=== PATIENT | male | born 1955 | race Hispanic/Latino ===

== ENCOUNTER 2025-09-06 17:40 | Emergency (ER) | payer MEDICARE ==
[~2025-09-06] VITALS: Ht 172.7 cm; Wt 112.1 kg
[2025-09-06] MEDS ORDERED: CRESTOR40 MG (18:09)
[2025-09-06] MEDS ORDERED: LOSARTAN POTAS100 MG PO (18:09)
[2025-09-06] MEDS ORDERED: CETIRIZINE HCL10 MG (18:09)
[2025-09-06] MEDS ORDERED: METFORMIN HCL500 M2 PO (18:09)
[2025-09-06] MEDS ORDERED: GLIPIZIDE5 MG PO (18:09)
[2025-09-06] MEDS ORDERED: FLOMAX0.4 MG PO (18:09)
[2025-09-06] MEDS: ACETAMINOPHEN 325 MG TAB PO ONE (18:30)
[2025-09-06 20:09] VITALS: PULSE 77; RESP 18; TEMP 97.8
[2025-09-06 20:11] VITALS: BP 146/72; PULSE 77; RESP 18; TEMP 97.8; O2SAT 98
== END 2025-09-06 20:14 | disposition home or self-care (01) ==
LOC: FSED 17:54
DX: S00.83XA Contusion of other part of head, initial encounter (principal); M54.2 Cervicalgia; W06.XXXA Fall from bed, initial encounter; Y92.89 Other specified places as the place of occurrence of the external cause; I10 Essential (primary) hypertension; E11.9 Type 2 diabetes mellitus without complications; E78.5 Hyperlipidemia, unspecified
CPT/HCPCS: 70450; 72125; 99284